=== PATIENT | female | born 1960 | race Caucasian/White ===

== ENCOUNTER → 2021-06-11 15:23 | Outpatient (CLI) | payer BC, SELFPAY ==
--- NOTE | ~2021-06-11 | CT_ITS ---
EXAMINATION: CT abdomen pelvis w con DATE: 06/11/2021 15:49 INDICATION: Right lower quadrant abdominal pain. TECHNIQUE: Computed tomography (CT) of the abdomen and pelvis was performed with 100 mL Omnipaque 350 intravenous contrast. Automated exposure control and iterative reconstruction technique were employe d. The dose-length product was 347.67 mGy-cm. COMPARISON: None. FINDINGS: The visualized portions of the lung bases demonstrate minimal atelectasis. No pleural effus ion. The heart size is normal. No pericardial effusion. There is a left posterior diaphragmatic herni a containing fat. The liver and gallbladder are normal. There are multiple low-attenuation masses in the spleen measuring up to 9 mm, likely benign lesions such as granulomatous disease. There is a 17 m m mass in the spleen with peripheral foci of hyperdensity that may be a hemangioma or granulomatous d isease. The pancreas, adrenal glands, and right kidney are normal. There is a 5 mm cyst in left kidne y. The appendix is normal. There are no pathologically enlarged lymph nodes. There is no free intrape ritoneal fluid. There is thoracolumbar dextroscoliosis. IMPRESSION: 1. No etiology for the patient's symptoms. Reviewed, dictated and finalized at location A. FICIAL CANDY MAKER
== END ==
PROVIDERS: PCP Physician Assistant; Visit Provider Physician Assistant
DX: R10.31 Right lower quadrant pain (principal)
CPT/HCPCS: 74177; Q9967

== ENCOUNTER 2021-07-05 01:13 | Day surgery (SDC) | payer BC, SELFPAY ==
[2021-06-24 16:03] VITALS: BMI 20.8
[2021-07-05 10:40] VITALS: BP 119/83; PULSE 96; RESP 18; TEMP 38.1; O2SAT 100; BMI 20.2
[2021-07-05] MEDS: LACTATED RINGERS 1,000 ML 150 ML IV CONT (11:07)
--- NOTE | 2021-07-05 11:13 | SUR.PREOP ---
Notified Dr. Knight of temp of 100.6. Patient denies other complaints and denies temp at home.
--- NOTE | 2021-07-05 11:20 | WPDANESEPPF ---
Anes - Initial Pre Proc Eval Procedure: Operation Date: 07/05/21 13:00 Proposed Procedures p Colonoscopy - Cesar Singh MD Date/Time: 07/05/21 11:20 Surgeon: Cesar Singh MD Pre Op Diagnosis: disease of intestines Patient Data Age: 61 Gender: F Height: 1.63 m Weight: 53.4 kg Last Vital Signs Temp 38.1 C H 07/05/21 10:40 Pulse 96 07/05/21 10:40 Resp 18 07/05/21 10:40 BP 119/83 07/05/21 10:40 Pulse Ox 100 07/05/21 10:40 Allergies Allergy/AdvReac Type Severity Reaction Status Date / Time No Known Allergies Allergy Verified 07/05/21 10:49 Home Medications Medication Instructions Recorded Confirmed Type levocetirizine [Xyzal] 5 mg PO HS 06/24/21 07/05/21 History Patient hx anesthesia problems: none Family hx anesthesia problems: none Results Review: All pre-operative results and documents have been reviewed as part of the pre-operative evaluation. [facility] Past Medical History Medical History (Updated 07/05/21 @ 11:23 by Ben Knight MD) Radius fracture Surgical History Surgical History (Updated 07/05/21 @ 11:23 by Ben Knight MD) History of section S/P breast lumpectomy Social History Social History Smoking status: Never smoker Alcohol intake: former Living arrangements: with family Spiritual care concerns: No Anes - Eval Final PreProcedure Day of Procedure 07/05/21 11:20 Patient weight: normal Heart: regular rate and rhythm Lungs: clear to auscultation Airway: Mallampati scale class II Neurological: alert and oriented Last oral intake: >/= 8 hours ASA classification: I Emergent: no Anesthetic plan: proceed Anesthesia type and monitoring: general GIVS and standard monitoring Results Review: All pre-operative results and documents have been reviewed as part of the pre-operative evaluation. Informed Consent: The patient's anesthetic plan and its attendant risks and benefits were discussed with the patient/family/POA. Questions were solicited and answers provided to the satisfaction of the patient/family/POA.
--- NOTE | 2021-07-05 11:35 | PM.HPGS ---
History of Present Illness History of Present Illness Consent: Risks, benefits, and alternatives have been discussed and questions answered. Patient agrees to proceed with procedure. Chief complaint: disease of intestines Narrative: Xin Gaspar is a 61 year old female with 1.5 month of rlq pain, also noted vaginal discharge but work up negative, never had colonoscopy. CT scan a/p negative. Review of Systems Constitutional: Constitutional: Denies headache(s) and Denies weakness Eyes: Eyes: Denies blurry vision ENT: Reports Normal hearing present, Denies headache(s) and Denies neck pain Cardiovascular: Cardiovascular: Denies chest pain and Denies dyspnea Respiratory: Respiratory: Denies dyspnea Gastrointestinal: Gastrointestinal: Reports no additional gastrointestinal complaints Genitourinary: Genitourinary: Denies dysuria Musculoskeletal: Musculoskeletal: Denies neck pain Integumentary/Breasts: Skin/Breast: Denies dry skin Neurologic: Reports Normal hearing present, Denies headache(s) and Denies weakness Psychiatric: Psychiatric: Denies anxiety Endocrine: Endocrine: Denies change in body appearance Hematologic/Lymphatic: Hematologic/Lymphatic: Denies easy bleeding Allergic/Immunologic: Allergic/Immunologic: Denies urticaria PMFSH Past Medical History Medical History (Updated 07/05/21 @ 11:36 by Cesar Singh MD) Radius fracture RLQ abdominal pain Surgical History Surgical History (Updated 07/05/21 @ 11:23 by Ben Knight MD) History of section S/P breast lumpectomy Social History Social History Smoking status: Never smoker Alcohol intake: former Living arrangements: with family Spiritual care concerns: No Meds Home Medications and Allergies Home Medications Medication Instructions Recorded Confirmed Type levocetirizine [Xyzal] 5 mg PO HS 06/24/21 07/05/21 History Allergies Allergy/AdvReac Type Severity Reaction Status Date / Time No Known Allergies Allergy Verified 07/05/21 10:49 Vital Signs Vital Signs - 24 hr 07/05/21 10:40 Temperature 100.6 F H Pulse Rate 96 Respiratory Rate 18 Blood Pressure 119/83 Pulse Oximetry 100 Exam Const: General: comfortable and no acute distress HENMT: General nose exam: Normal nares present Eyes: General: appearance normal, both eyes and all related structures Neck: Neck: no JVD Resp: Auscultation: clear to auscultation bilaterally Cardio: Rate: regular rate Rhythm: regular rhythm GI: Inspection: non-distended GI Palp: Yes Soft to palpation Skin: General skin exam: normal color Neuro: General: gait normal Speech: normal speech Extrem: General: normal to inspection Psych: Mental Status: mental status grossly normal Assessment and Plan Assessment and plan (1) RLQ abdominal pain: Code(s): R10.31 - Right lower quadrant pain Status: Acute Assessment and Plan: colonoscopy
[2021-07-05 11:52] VITALS: BP 91/61; PULSE 88; RESP 20; O2SAT 98
[2021-07-05 12:02] VITALS: BP 120/81; PULSE 98; RESP 21; O2SAT 99
[2021-07-05 12:12] VITALS: BP 116/77; PULSE 81; RESP 16; O2SAT 99
== END 2021-07-05 12:30 | disposition home or self-care (01) ==
PROVIDERS: PCP Physician Assistant; Visit Provider Internal Medicine Gastroenterology
PROC: 0DJD8ZZ Inspection of Lower Intestinal Tract, Via Natural or Artificial Opening Endoscopic (ICD-10-PCS; CPT 45378; principal; 2021-07-05 13:00)
DX: Z12.11 Encounter for screening for malignant neoplasm of colon (principal); K57.30 Diverticulosis of large intestine without perforation or abscess without bleeding; K64.8 Other hemorrhoids
CPT/HCPCS: 45378; J2001; J2704; J7120

== ENCOUNTER 2021-07-12 13:58 | Outpatient (CLI) | payer BC, SELFPAY ==
--- NOTE | ~2021-07-12 | XR_ITS ---
EXAMINATION: XR chest 2V EXAM DATE: 07/12/2021 14:13 INDICATION: Cough. COVID positive July 06. TECHNIQUE: Frontal and lateral projections of the chest obtained and reviewed. There is no prior marianne dy for comparison. FINDINGS: The lungs are hyperinflated which can be seen with chronic obstructive pulmonary disease ( a clinical diagnosis of functional impairment), but is not diagnostic of it. The lungs are clear. Th ere are no pleural effusions. The cardiomediastinal silhouette is within normal limits. There is no pneumothorax suspected. Mild thoracic scoliosis. IMPRESSION: No acute cardiopulmonary findings. Reviewed, dictated and finalized at location B. TER ELECTRICAL
== END 2021-07-12 13:59 | disposition home or self-care (01) ==
LOC: ANHIMG 14:03
PROVIDERS: PCP Physician Assistant; Visit Provider Physician Assistant
DX: R05.9 Cough, unspecified (principal)
CPT/HCPCS: 71046

== ENCOUNTER 2023-09-23 12:42 | Emergency (ER) | payer BC, SELFPAY ==
--- NOTE | ~2023-09-23 | CT_ITS ---
EXAMINATION: CT abdomen pelvis wo con DATE: 09/23/2023 13:40 INDICATION: Right flank pain. Hematuria. TECHNIQUE: Computed tomography (CT) of the abdomen and pelvis was performed without intravenous contr ast. Automated exposure control and iterative reconstruction technique were employed. The dose-length product was 206.50 mGy-cm. COMPARISON: CT abdomen and pelvis 06/11/2021 FINDINGS: The visualized portions of the lung bases demonstrate minimal atelectasis. There is a left posterior diaphragmatic hernia containing fat. No pleural effusion. The heart size is normal. No norah cardial effusion. The liver, gallbladder, pancreas, and adrenal glands are normal. Calcifications in the spleen are consistent with old granulomatous disease. There are chronic hypodense lesions in the spleen measuring up to 17 mm, likely benign findings such as old granulomatous disease. There is mild right hydronephrosis. There is a 6 mm stone at right ureteropelvic junction. Left kidney is normal. There is diverticulosis of the colon without evidence of diverticulitis. The appendix is normal. Ther e are no pathologically enlarged lymph nodes. There is no free intraperitoneal fluid. There is lumbar levoscoliosis and mild spondylosis. There is mild chronic anterior wedging of T11 vertebral body. IMPRESSION: 1. 6 mm stone at right ureteropelvic junction with mild right hydronephrosis. Reviewed, dictated and finalized at location A. R PRODUCTION WORKER
[2023-09-23 12:46] VITALS: BP 137/85; PULSE 91; RESP 15; TEMP 36.4; O2SAT 100
--- NOTE | 2023-09-23 12:58 | PC.NURSE ---
pt unable to urinate upon arrival. pt educated on using call light with any urge to urinate
[2023-09-23 13:00] VITALS: BP 126/84; PULSE 82; RESP 17; O2SAT 100
[2023-09-23 13:01] LABS: Basophils Percent Auto 0.3 % (0.2-1.2); Hematocrit 41.7 % (37.0-47.0); Hemoglobin 13.4 g/dL (12.0-15.0); Immature Granulocyte Absolute 0.02 K/mm3 (0.00-0.031); Immature Granulocyte Percent A 0.3 % (0-0.5); Lymphocytes Percent Auto 9.9 % (18.3-44.2); Mean Corpuscular HGB Conc 32.1 g/dl (32-36); Mean Corpuscular Volume 90.3 fl (80-100); Mean Platelet Volume 9.6 fl (7.4-10.4); Monocytes Absolute Auto 0.3 K/mm3 (0.1-0.6); Monocytes Percent Auto 3.8 % (2.6-8.5); Neutrophils Absolute Auto 6.1 K/mm3 (1.3-6.7); Neutrophils Percent Auto 85.7 % (45.5-73.1); Platelet Count Result 304 k/mm3 (150-375); Red Blood Count 4.62 M/mm3 (4.2-5.4); Red Cell Distribution Width 12.6 % (11.5-14.5); White Blood Count 7.1 K/mm3 (4.5-10.0)
[2023-09-23 13:11] LABS: Alanine Aminotransferase 36 U/L (6-35); Albumin Level 4.4 g/dL (3.5-5.1); Alkaline Phosphatase 110 U/L (38-126); Anion Gap 3 mmol/L (8-16); Aspartate Amino Transferase 46 U/L (14-36); Bilirubin,Total 0.8 mg/dL (0.2-1.3); Blood Urea Nitrogen 12 mg/dL (7-17); Calcium 9.4 mg/dL (8.4-10.2); Carbon Dioxide 29 mmol/L (22-30); Chloride 103 mmol/L (98-107); Estimated CRCL calculation 56 ml/min; Estimated Glomerular Filt Rate > 60; Glucose 116 mg/dL (65-110); Lipase 49 U/L (23-300); Potassium 3.6 mmol/L (3.4-5.0); Sodium 135 mmol/L (137-145)
--- NOTE | 2023-09-23 13:30 | ED.ABDPAIN ---
HPI - Abdominal Pain General Chief Complaint: Abdominal Pain Stated Complaint: right flank pain Time Seen by Provider: 09/23/23 12:45 History of Present Illness HPI narrative: 63-year-old female presents to the emergency department for right-sided flank pain that started today with gross hematuria. Patient states she woke up this morning her 1st urination was normal. States later at work she did bathroom and noticed bright red blood. She has had associated right flank pain since she woke up this morning. States the pain is now moving somewhat into her right lower quadrant, however is mostly concentrated in her right flank. She reports dysuria, nausea and chills earlier today which has since resolved. Denies vomiting, diarrhea, fever, history of kidney stones. Only abdominal surgeries are prior C-sections. Related Data Home Medications Medication Instructions Recorded Confirmed levocetirizine 5 mg tablet (Xyzal) 5 mg PO HS 06/24/21 07/05/21 Allergies Allergy/AdvReac Type Severity Reaction Status Date / Time No Known Allergies Allergy Verified 07/05/21 10:49 Review of Systems Review of Systems: CONSTITUTIONAL: Denies fever, chills, or sweats. EYES: Denies visual changes, redness, or discharge. ENT: Denies rhinorrhea, congestion, sore throat, or otalgia. CARDIOVASCULAR: Denies chest pain, palpitations, or edema. RESPIRATORY: Denies cough or dyspnea. GASTROINTESTINAL: See HPI GENITOURINARY: Denies dysuria or hematuria. SKIN: Denies rash or itching. MUSCULOSKELETAL: Denies back pain, joint pain, or myalgia. NEUROLOGIC: Denies headache, numbness, or weakness. PSYCHIATRIC: Denies anxiety or depression. [facility] Past Medical History Medical History Radius fracture RLQ abdominal pain Surgical History Surgical History History of section S/P breast lumpectomy Social History Social History Smoking status: Never smoker Alcohol intake: former Living arrangements: with family Spiritual care concerns: No Exam Narrative: GENERAL: Well-appearing, well-nourished, and in no acute distress. Patient resting comfortably in exam bed. She is pleasant and conversational. HEAD: Normocephalic, atraumatic. EYES: PERRLA and EOMI. ENT: Nares clear, no rhinorrhea or epistaxis. Mucous membranes moist. NECK: Supple. CHEST: Clear to auscultation. No respiratory distress. HEART: Regular rate and rhythm. No murmur heard. Normal peripheral pulses. ABDOMEN: Soft, nontender, nondistended, normal active bowel sounds. No rebound, guarding or rigidity. No CVA tenderness. EXTREMITIES: Normal range of motion. No edema. SKIN: Warm, dry, no rash. NEURO: No focal deficits. Alert and oriented x3 Course Vital Signs Vital signs: Vital Signs Temperature 97.6 F 09/23/23 12:46 Pulse Rate 91 09/23/23 12:46 Respiratory Rate 15 09/23/23 12:46 Blood Pressure 137/85 09/23/23 12:46 Pulse Oximetry 100 09/23/23 12:46 Temperature 97.6 F 09/23/23 12:46 Pulse Rate 82 09/23/23 13:00 Respiratory Rate 17 09/23/23 13:00 Blood Pressure 126/84 09/23/23 14:00 Pulse Oximetry 100 09/23/23 13:00 MDM - Abdominal Pain MDM Narrative Medical decision making narrative: 63-year-old female presents to emergency department for right flank pain and hematuria today. See HPI for further history. Vitals are stable. She is nontoxic and well appearing on exam. Exam significant for the above. CBC without leukocytosis. Chemistries with mild elevation in AST ALT, no tenderness in the right upper quadrant. Remainder of LFTs are unremarkable. UA with hematuria, no pyuria or bacteriuria concerning for infection. Lipase is normal. CT abdomen pelvis shows a 6 mm stone at the right ureteropelvic junction with mild right hydronephrosis.
[2023-09-23 14:00] VITALS: BP 126/84
[2023-09-23 14:21] LABS: Appearance Urine Clear (Clear); Bacteria Urine None Seen /hpf; Bilirubin Urine Negative (Negative); Blood Urine 3+ (Negative); Glucose Urine UA Negative (Negative); Ketones Urine Negative (Negative); Leukocyte Esterase Ur Trace LEU/UL (Negative); Nitrate Urine Negative (Negative); Non Pathogenic Casts 0-2; Protein Urine 1+ mg/dL (Negative); RBC Urine 51-100 /hpf (0-2); Specific Grav Ur 1.005 (1.001-1.035); Squamous Epithelial Cell Urine None seen /hpf (Few); Urobilinogen Urine 0.2 mg/dL (<2.0); WBC Urine 0-5 /hpf; pH Urine 6.5 (5.0-9.0)
[2023-09-23 14:22] LABS: Add Urine Microscopic? YES; Color Urine Light Red (Yellow)
[2023-09-23 14:46] VITALS: BP 122/76; PULSE 64; RESP 15; TEMP 36.8; O2SAT 100
--- NOTE | 2023-09-23 14:47 | PC.NURSE ---
provided pt with urine strainer and urine cup to attempt to collect stone when passing it
== END 2023-09-23 14:47 | disposition home or self-care (01) ==
PROVIDERS: Emergency Provider Physician Assistant; PCP Physician Assistant
DX: N13.2 Hydronephrosis with renal and ureteral calculous obstruction (principal)
CPT/HCPCS: 36415; 74176; 80053; 81001; 83690; 85025; 99284

== ENCOUNTER 2023-09-25 05:23 | Day surgery (SDC) | payer BC, SELFPAY ==
--- NOTE | 2023-09-24 14:18 | PC.NURSE ---
Report to the Outpatient Waiting Room, entrance under the green pavilion located off [facility], at time _1030 on date __09/25/23 . Planned Procedure Time: _1230 . Time changes happen often and if your time is changed the preop area will call you the afternoon before. - You and your visitor will be asked to self-screen and do not enter if you have any COVID symptoms. - A mask is optional within the hospital at this time. Patients may have clear liquids (water, carbonated beverages, clear teas, apple juice) until 3 hours prior to surgery with a maximum of 20 ounces. - No food from midnight until time of surgery - Infants may have breast milk until 4 hours before surgery, formula 6 hours prior to surgery. - Children will be allowed to drink immediately following surgery. If applicable, please bring a bottle or sippy cup to assist with drinking. Juice, water, soda, and popsicles are readily available. For infants on formula, please bring formula the day of surgery. Pacifiers are allowed. Take the following medications with a SIP of water the morning of surgery: ____NONE DO NOT STOP ANY OF YOUR OTHER PRESCRIPTION MEDICATIONS PRIOR TO SURGERY ?EXCEPT THE FOLLOWING Medications to discontinue per physician ____NONE Date to take last dose Please no make-up, nail sinhala, hairspray, perfume, deodorant, or body powder the day of surgery. No jewelry (including any body piercings) or valuables the day of surgery, leave them at home. Please take a shower or bath the night before, or the morning of, surgery with an antibacterial soap. Wear comfortable, loose fitting clothing. Children are encouraged to wear pajamas. - Jewelry must be removed prior to entering the operating room. Rings and piercings that are not removed may be cut off. - The hospital will not accept responsibility for valuables. - Please leave all valuables, including medications, at home the day of surgery. If you are going home after surgery, a licensed local combination truck driver must drive you home. - NO public transportation without another adult if you receive anesthesia. - We recommend that an adult stay with you for 24 hours following discharge. - We also recommend that you do not drive, make important decision, drink alcoholic beverages, or take any drugs that were not prescribed by your health care provider for at least 24 hours after your discharge time. For Pediatric surgeries, we recommend two adults accompany the child home. Follow any additional instructions given to you from your surgeon. If you or anyone in your household have experienced Covid symptoms in the past week, please notify your surgeon or the nurse liaison at the phone number below for possible testing. Telephone instructions given to __PATIENT and asked if any additional questions and then verbalized understanding. Patient advised to call surgeon office or pre surgery nurse liaison [phone] if any additional questions.
[2023-09-24 14:20] VITALS: BMI 19.7
[2023-09-25] VITALS (10 sets, daily range): BP systolic 107–128; BP diastolic 47–85; PULSE 55–79; RESP 12–16; TEMP 36.1–37.5; O2SAT 96–100; BMI 19.9
--- NOTE | ~2023-09-25 | XR_ITS ---
EXAMINATION: XR abdomen/kub 1V DATE: 09/25/2023 10:43 INDICATION: Kidney stone. TECHNIQUE: A supine view of the abdomen on 2 radiographs was obtained. COMPARISON: CT abdomen and pelvis 09/23/2023 FINDINGS: There are no dilated loops of bowel. There is a 6 mm stone at right ureteropelvic junction. IMPRESSION: 1. 6 mm stone at right ureteropelvic junction. Reviewed, dictated and finalized at location A. EHAND
[2023-09-25] MEDS: LACTATED RINGERS 1,000 ML 30 ML IV CONT ×2 (11:00→14:01)
--- NOTE | 2023-09-25 11:03 | WPDHPUPDATE1 ---
History and Physical Update Update Date/Time: 09/25/23 11:03 History and Physical has been reviewed, including an updated exam of the patient. There are NO changes in the patient's condition. Risks, benefits, and alternatives have been discussed and questions answered. Patient agrees to proceed with procedure. Proceed with lithotripsy of right UPJ calculus
--- NOTE | 2023-09-25 11:13 | P.PNAN_ITS ---
Anes - Initial Pre Proc Eval Procedure: Operation Date: 09/25/23 12:30 Proposed Procedures p Right Extracorporeal Shock Wave Lithotripsy - Obed Orozco MD Date/Time: 09/25/23 11:13 Surgeon: Obed Orozco MD Pre Op Diagnosis: right ureteral stone Patient Data Age: 63 Gender: F Height: 1.63 m Weight: 52.2 kg Allergies Allergy/AdvReac Type Severity Reaction Status Date / Time No Known Allergies Allergy Verified 09/24/23 14:10 Home Medications Medication Instructions Recorded Confirmed Type levocetirizine 5 mg tablet (Xyzal) 5 mg PO HS 06/24/21 09/24/23 History hydrocodone 5 mg-acetaminophen 325 1 tablet PO Q8H PRN pain #14 tabs 09/23/23 09/24/23 Rx mg tablet tamsulosin 0.4 mg capsule (Flomax) 0.4 mg PO HS #14 caps 09/23/23 09/24/23 Rx ondansetron 4 mg disintegrating 4 mg PO Q8H PRN Nausea 09/24/23 09/24/23 History tablet Patient hx anesthesia problems: none Family hx anesthesia problems: none Results Review: All pre-operative results and documents have been reviewed as part of the pre- operative evaluation. PMFSH Past Medical History Medical History Radius fracture RLQ abdominal pain Surgical History Surgical History History of section S/P breast lumpectomy Social History Social History Smoking status: Never smoker Alcohol intake: former Living arrangements: with family Spiritual care concerns: No Anes - Eval Final PreProcedure Day of Procedure 09/25/23 11:13 Patient weight: normal Heart: regular rate and rhythm Lungs: clear to auscultation Airway: Mallampati scale class II Neurological: alert and oriented Last oral intake: >/= 8 hours ASA classification: I Emergent: no Anesthetic plan: proceed Anesthesia type and monitoring: general LMA and standard monitoring Results Review: All pre-operative results and documents have been reviewed as part of the pre- operative evaluation. Informed Consent: The patient's anesthetic plan and its attendant risks and benefits were discussed with the patient/family/POA. Questions were solicited and answers provided to the satisfaction of the patient/family/POA.
[2023-09-25 11:40] LABS: Partial Thromboplastin Time 26.1 SECONDS (22.3-36.8)
[2023-09-25] MEDS: ceFAZolin 2 GM/D5W 50 ML 2 GM/50 ML BAG IVPB (11:47)
--- NOTE | 2023-09-25 12:25 | W.PM.PROC2 ---
Procedure Note - Detailed Date of Procedure 09/25/23 Pre-op Diagnosis right ureteral stone Post-op Diagnosis Same Procedure Performed Lithotripsy of right UPJ calculus 6 mm Surgeon Obed Orozco MD Anesthesia General Description of Procedure Patient was taken to the operative suite correctly identified. Once anesthesia was obtained the stone was localized in both planes. After 1500 shocks the stone had disappeared. At this point we terminated the procedure. Patient is taken recovery stable condition. She will follow-up in 7-10 days with KUB. This completes dictation. Please send a copy of op note to my office. Estimated Blood Loss 0 Drains No Packing No Pathology None sent Complications No immediate complications Condition Stable Disposition PACU
[2023-09-25] MEDS: fentaNYL CITRATE INJ (*CRX) 100 MCG/2 ML VIAL 25 MCG IV PUSH ×4 (12:46→13:12)
[2023-09-25] MEDS: oxyCODONE HCL (*CRX) 5 MG TAB IR PO (13:30)
[2023-09-25] MEDS: HYDROmorphone HCL INJ (*CRX) 1 MG/ML SYR 0.25 MG IV PUSH ×2 (13:58→14:06)
== END 2023-09-25 15:27 | disposition home or self-care (01) ==
PROVIDERS: PCP Physician Assistant; Visit Provider Urology
PROC: (CPT 50590; principal; 2023-09-25 12:30)
DX: N20.1 Calculus of ureter (principal)
CPT/HCPCS: 50590; 36415; 74018; 85610; 85730; A9270; J0690; J1170; J2250; J3010; J7120

== ENCOUNTER 2023-10-07 13:10 | Outpatient (CLI) | payer BC, SELFPAY ==
--- NOTE | ~2023-10-07 | XR_ITS ---
EXAMINATION: XR abdomen/kub 1V DATE: 10/07/2023 13:24 INDICATION: Right ureteral stone. TECHNIQUE: A supine view of the abdomen was obtained. COMPARISON: Abdomen radiographs 09/25/2023, CT abdomen and pelvis 09/23/23 FINDINGS: There are no dilated loops of bowel. There is no visible urolithiasis. IMPRESSION: 1. No visible urolithiasis. Reviewed, dictated and finalized at location A. IMPRESSION: 1. No visible urolithiasis.
== END 2023-10-07 13:11 | disposition home or self-care (01) ==
PROVIDERS: PCP Physician Assistant; Visit Provider Urology
DX: N20.1 Calculus of ureter (principal)
CPT/HCPCS: 74018

== ENCOUNTER 2024-07-28 16:37 | Outpatient (CLI) | payer BC, SELFPAY ==
--- NOTE | ~2024-07-28 | XR_ITS ---
CHEST RADIOGRAPH, PA AND LATERAL CLINICAL HISTORY: COUGH x several weeks . COMPARISON: 07/12/2021 TECHNIQUE: PA and lateral views of the chest. FINDINGS The cardiomediastinal silhouette is unremarkable. The lungs are clear. Visualized osseous structures and soft tissues are unremarkable. IMPRESSION: No focal infiltrate or effusion. Reviewed, dictated and finalized at location A. ORT STATION ATTENDANT
== END 2024-07-28 16:38 | disposition home or self-care (01) ==
PROVIDERS: PCP Physician Assistant; Visit Provider Physician Assistant
DX: R05.9 Cough, unspecified (principal)
CPT/HCPCS: 71046